=== PATIENT | female | born 1940 | race Caucasian/White ===

== ENCOUNTER 2022-01-02 13:45 | Outpatient (RCR) | payer MEDICARE, SELFPAY | END 2022-04-09 10:56 | disposition home or self-care (01) | PROVIDERS: Visit Provider Orthopaedic Surgery Orthopaedic Surgery of the Spine | DX: M81.0 Age-related osteoporosis without current pathological fracture (principal); Z51.89 Encounter for other specified aftercare | CPT/HCPCS: 97110; 97140; 97162 ==